=== PATIENT | female | born 1995 | race American Indian/Alaskan Native ===

== ENCOUNTER 2019-03-10 23:07 | Emergency (ER) | payer OTHER ==
[2019-03-10 23:44] VITALS: BP 111/64
[2019-03-11 01:18] LABS: Amorphous Crystals,Urine Few; Bilirubin,Urine NEG (Negative); Blood,Urine SM (Negative); Color,Urine Yellow (Yellow); Mucus,Urine 3+ /HPF; Urobilinogen,Urine < 2.0 mg/dL (<2.0)
[2019-03-11] MEDS ORDERED: FIORICET PO ONE (01:41)
[2019-03-11 02:00] LABS: HCG Qualitative,Urine Negative (Negative)
--- NOTE | 2019-03-11 02:49 | Emergency Department Report ---
ED Headache HPI - General Chief Complaint: Headache Stated Complaint: LOMBARDO,FREQUENT URINATION BLURRY VISION Time Seen by Provider: 03/11/19 01:41 - History of Present Illness Initial Comments: 31-year-old female presents to ED with complaint of left-sided headache 2-3 days. Patient reports history of chronic migraine headaches. States this headache feels similar to her previous migraines. Reports one episode of emesis. Denies fever. Patient also reports urinary frequency, denies abdominal pain or dysuria. Timing/Duration: other (2-3 days) Quality: moderate Recent Head Trauma: chronic headaches Associated Symptoms: nausea/vomiting. denies: fever/chills Allergies/Adverse Reactions: Allergies aspirin Allergy (Verified 03/10/19 23:17) Itching Home Medications: Ambulatory Orders Butalb/Acetamin/Caff 50-325-40 [Fioricet] 1 tab PO Q6HR PRN #10 tab 03/11/19 Sulfamethoxazole/Trimethoprim [Bactrim DS TAB] 1 each PO BID #6 tablet 03/11/19 traMADol [Ultram] 50 mg PO Q6HR PRN #7 tablet 03/11/19 ED Review of Systems ROS: Stated complaint: LOMBARDO,FREQUENT URINATION BLURRY VISION Other details as noted in HPI Comment: All other systems reviewed and negative Constitutional: denies: chills, fever Endocrine: increased thirst Gastrointestinal: nausea, vomiting Neurological: headache. denies: weakness, numbness ED Past Medical Hx - Past Medical History Previous Medical History?: Yes Hx Hypertension: Yes (pre-eclampsia) - Surgical History Past Surgical History?: No - Social History Smoking Status: Former Smoker Substance Use Type: None - Medications Home Medications: Home Medications Medication Instructions Recorded Confirmed Last Taken Type Butalb/Acetamin/Caff 50-325-40 1 tab PO Q6HR PRN #10 tab 03/11/19 Unknown Rx [Fioricet] Sulfamethoxazole/Trimethoprim 1 each PO BID #6 tablet 03/11/19 Unknown Rx [Bactrim DS TAB] traMADol [Ultram] 50 mg PO Q6HR PRN #7 tablet 03/11/19 Unknown Rx ED Physical Exam - General Limitations: No Limitations General appearance: alert, in no apparent distress, other (nontoxic-appearing) - Head Head exam: Present: atraumatic, normocephalic - Eye Eye exam: Present: normal appearance, PERRL, EOMI - ENT ENT exam: Present: mucous membranes moist - Respiratory Respiratory exam: Present: normal lung sounds bilaterally. Absent: respiratory distress - Cardiovascular Cardiovascular Exam: Present: regular rate, normal rhythm - GI/Abdominal GI/Abdominal exam: Present: soft. Absent: distended, tenderness - Extremities Exam Extremities exam: Present: normal inspection - Neurological Exam Neurological exam: Present: alert, oriented X3, CN II-XII intact. Absent: motor sensory deficit - Psychiatric Psychiatric exam: Present: normal affect, normal mood - Skin Skin exam: Present: warm, dry, intact, normal color ED Course Vital Signs 03/10/19 03/10/19 23:17 23:41 Temperature 98.6 F Pulse Rate 94 H Respiratory 16 18 Rate Blood Pressure 111/64 O2 Sat by Pulse 100 Oximetry ED Medical Decision Making - Differential Diagnosis migraine LOMBARDO, UTI, new onset diabetes Critical care attestation.: If time is entered above; I have spent that time in minutes in the direct care of this critically ill patient, excluding procedure time. ED Disposition Clinical Impression: Acute headache, UTI (urinary tract infection) Disposition: - TO HOME OR SELFCARE Is pt being admited?: No Condition: Stable Instructions: Urinary Tract Infection in Women (ED), Acute Headache (ED) Prescriptions: Sulfamethoxazole/Trimethoprim [Bactrim DS TAB] 1 each PO BID #6 tablet Butalb/Acetamin/Caff 50-325-40 [Fioricet] 1 tab PO Q6HR PRN #10 tab PRN Reason: Headache traMADol [Ultram] 50 mg PO Q6HR PRN #7 tablet PRN Reason: Pain Referrals: [facility] [Provider Group] - 3-5 Days JOSE EUGENE MD [Referring] - 3-5 Days Time of Disposition: 02:47
== END 2019-03-11 03:10 | disposition home or self-care (01) ==
LOC: ED 23:07
DX: G43.709 Chronic migraine without aura, not intractable, without status migrainosus (principal); I10 Essential (primary) hypertension; N39.0 Urinary tract infection, site not specified; R11.2 Nausea with vomiting, unspecified; Z88.6 Allergy status to analgesic agent; Z79.899 Other long term (current) drug therapy; Z87.891 Personal history of nicotine dependence
CPT/HCPCS: 81001; 81025; 82962; 87086; 99283